=== PATIENT | male | born 1950 | race Caucasian/White ===

== ENCOUNTER 2019-07-19 10:46 | Inpatient (IN) | payer OTHER, MEDICARE ==
[~2019-07-19] VITALS: Ht 182.9 cm; Wt 146.7 kg
[2019-07-19 11:38] LABS: MEAN CORPUSCULAR HEMOGLOBIN 29.5 pg (27.5-34.5); MEAN CORPUSCULAR VOLUME 89.3 fL (81-97); MEAN PLATELET VOLUME 7.4 fL (7.4-10.4); PLATELET COUNT 193 x10^3/uL (130-400); RED BLOOD COUNT 5.58 x10^6/uL (4.38-5.82); RED CELL DISTRIBUTION WIDTH 14.9 % (9.4-14.8)
[2019-07-19 11:45] LABS: ALBUMIN 3.7 g/dL (3.4-5.0); ANION GAP 5 mmol/L (5-15); CALCIUM 8.9 mg/dL (8.5-10.1); CHLORIDE 109 mmol/L (98-107)
[2019-07-19 11:47] LABS: CREATININE 1.59 mg/dL (0.7-1.3)
[2019-07-19 12:12] LABS: MD YES
[2019-07-19 12:19] LABS: BAND#(MANUAL) 0.41 x10^3/uL; BANDS%(MANUAL) 2 % (0-7); LYMPH#(MANUAL) 1.44 x10^3/uL (1-3.4); LYMPHS% (MANUAL) 7 % (22-44); MONOS#(MANUAL) 0.62 x10^3/uL (0.3-2.7); MONOS% (MANUAL) 3 % (2-9); SEG#(MANUAL) 18.04 x10^3/uL (1.8-6.8); SEGS% (MANUAL) 88 % (42-75)
[2019-07-19 12:21] LABS: <RBC MORPHOLOGY> NORMAL
[2019-07-19 12:22] LABS: <PLATELET ESTIMATE> ADEQUATE; <PLT MORPHOLOGY> NORMAL PLT MORPH
--- NOTE | 2019-07-19 12:42 | NUR ---
Vick laura in ED - 07/19/19 at 1244 by ARIANE BREAK [employer] REPAIRER: PT FROM LOBBY TO ROOM AT THIS TIME.
--- NOTE | 2019-07-19 12:44 | NUR ---
BREAK RN: CALLED FOR PT. PT NOT IN LOBBY.
--- NOTE | 2019-07-19 14:54 | NUR ---
ASSUMED CARE OF PT AT THIS TIME. THIS IS A 68 YO MALE WHO PRESENTS TO THE ER C/O GENERALIZED WEAKNESS AND "FEELING REALLY COLD YESTERDAY" AND PER PT IS "DISORIENTED". PT ANSWERING ALL QUESTIONS APPROPRIATELY AT THIS TIME. PT MOVES ALL EXTREMITIES W/O DIFFICULTY. PT AO X 4. SKIN PWD. RESP EVEN AND UNLABORED. 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 CALL LIGHT WITHIN REACH. WILL CONT TO MONITOR PT. Addendum: 07/19/19 at 1459 by ARIANE ASSUMED CARE OF PT AT THIS TIME. THIS IS A 68 YO MALE WHO PRESENTS TO THE ER C/O GENERALIZED WEAKNESS AND "FEELING REALLY COLD YESTERDAY" AND PER PT IS "DISORIENTED". PT ANSWERING ALL QUESTIONS APPROPRIATELY AT THIS TIME. PT MOVES ALL EXTREMITIES W/O DIFFICULTY. PER AND PT HE WAS TOO WEAK TO STAND AND GET OFF BED THIS MORNING. STATES SHE HAD TO CALL AN AMBULANCE BECAUSE SHE COULDN'T GET HIM TO THE CAR. PT STATES HE CAN STAND TO USE THE BATHROOM "WITH GREAT DIFFICULTY". PT AO X 4. SKIN PWD. RESP EVEN AND UNLABORED. 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 CALL LIGHT WITHIN REACH. WILL CONT TO MONITOR PT.
--- NOTE | 2019-07-19 15:30 | NUR ---
BLADDER SCANNED PT AFTER PT USED URINAL. 147 ML NOTED IN BLADDER. ERNA CLARK AND LEASING DIRECTOR STUDENT MILO MADE AWARE. PT AO X 4. SKIN PWD. RESP EVEN AND UNLABORED. PT ON CONT CP, CARDIAC AND O2 MONITORS.
[2019-07-19] MEDS ORDERED: CEFTRIAXONE PMX 1GM/50ML 50 ML ONE (15:56)
[2019-07-19] MEDS ORDERED: CEFTRIAXONE PMX 1GM/50ML 50 ML IVPB ONE (16:00)
[2019-07-19] MEDS ORDERED: SODIUM CHLORIDE 0.9% 1,000ML IVBOLUS ONE (16:00)
[2019-07-19] MEDS ORDERED: SODIUM CHLORIDE FLUSH 10ML SYR IVF ONE (16:30)
--- NOTE | 2019-07-19 16:40 | NUR ---
BREAK RN: X1 ASSIST WITH AMBULATING PATIETN TO RESTROOM CONNECTED TO ROOM. REPORT GIVEN BACK TO PRIMARY RN, VIOLET.
[2019-07-19 16:41] LABS: CULTURE INDICATED? YES; MICROSCOPIC INDICATED
--- NOTE | 2019-07-19 17:30 | NUR ---
PT TO IMAGING VIA [employer] AT THIS TIME.
[2019-07-19] MEDS ORDERED: ONDANSETRON 2MG/ML, 2ML IVPush PRN (18:00)
[2019-07-19] MEDS ORDERED: ACETAMINOPHEN 325 MG TABLET PO PRN (18:00)
[2019-07-19] MEDS ORDERED: ONDANSETRON ODT 4 MG PO PRN (18:00)
[2019-07-19] MEDS ORDERED: TAMSULOSIN 0.4 MG CAP.ER.24H PO ONE (18:00)
[2019-07-19] MEDS ORDERED: TAMS-11 PO (18:04)
--- NOTE | 2019-07-19 18:06 | NUR ---
REPORT TO DEISI BEDOYA. PT STILL IN IMAGING AT THIS TIME.
[2019-07-19] MEDS: CEFTRIAXONE PMX 1GM/50ML 50 ML IV SCH (18:19)
[2019-07-19] MEDS: SODIUM CHLORIDE 0.9% 1,000 ML IV SCH (18:36)
[2019-07-19] MEDS: ENOXAPARIN 40 MG/0.4 ML SQ SCH (18:37)
[2019-07-19 19:55] VITALS: BP 134/81
[2019-07-20] MEDS: SODIUM CHLORIDE 0.9% 1,000 ML IV SCH ×3 (02:19→17:41)
[2019-07-20 02:20] VITALS: BP 133/76
[2019-07-20 03:19] LABS: CLOSTRIDIUM DIFFICILE ANTIGEN NEGATIVE; CLOSTRIDIUM DIFFICILE TOXIN NEGATIVE (Negative)
[2019-07-20 05:30] LABS: MEAN CORPUSCULAR HEMOGLOBIN 29.4 pg (27.5-34.5); MEAN CORPUSCULAR HGB CONC 32.4 g/dL (33.2-36.2); MEAN CORPUSCULAR VOLUME 90.6 fL (81-97); MEAN PLATELET VOLUME 6.9 fL (7.4-10.4); PLATELET COUNT 147 x10^3/uL (130-400); RED BLOOD COUNT 5.17 x10^6/uL (4.38-5.82); RED CELL DISTRIBUTION WIDTH 14.8 % (9.4-14.8)
[2019-07-20 05:39] LABS: ALANINE AMINOTRANSFERASE 40 U/L (12-78); ALBUMIN 3.2 g/dL (3.4-5.0); ANION GAP 7 mmol/L (5-15); CALCIUM 8.5 mg/dL (8.5-10.1); CHLORIDE 110 mmol/L (98-107); CREATININE 1.79 mg/dL (0.7-1.3)
[2019-07-20 05:41] LABS: ALKALINE PHOSPHATASE 51 U/L (45-117); BILIRUBIN,TOTAL 1.5 mg/dL (0.2-1.0); TOTAL PROTEIN 7.2 g/dL (6.4-8.2)
[2019-07-20 05:58] LABS: BASOPHILS % (AUTO) 1 % (0-1); EOSINOPHILS # (AUTO) 0.02 x10^3/uL (0-0.4); EOSINOPHILS % (AUTO) 0 % (1-7); LYMPHOCYTES # (AUTO) 1.76 x10^3/uL (1-3.4); LYMPHOCYTES % (AUTO) 10 % (22-44); MD SCAN; MONOCYTES # (AUTO) 1.34 x10^3/uL (0.2-0.8); MONOCYTES % (AUTO) 8 % (2-9); NEUTROPHILS % (AUTO) 81 % (42-75)
[2019-07-20 08:00] VITALS: BP 134/75
[2019-07-20 15:19] VITALS: BP 136/85
[2019-07-20] MEDS: CEFTRIAXONE PMX 1GM/50ML 50 ML IV SCH (17:41)
[2019-07-20] MEDS: ENOXAPARIN 40 MG/0.4 ML SQ SCH (17:41)
[2019-07-20] MEDS ORDERED: FENTANYL PF 100 MCG/2ML ONE (18:57)
[2019-07-20] MEDS ORDERED: PROMETHAZINE 25 MG/ML, 1ML IV PRN (19:30)
[2019-07-20] MEDS ORDERED: LABETALOL 5MG/ML, 20ML IV PRN (19:30)
[2019-07-20] MEDS ORDERED: MEPERIDINE/PF 25MG/0.5ML IVPush PRN (19:30)
[2019-07-20] MEDS ORDERED: FENTANYL PF 100 MCG/2ML IV PRN (19:30)
[2019-07-20] MEDS ORDERED: hydrALAzine 20 MG/ML, 1ML IV PRN (19:30)
[2019-07-20] MEDS ORDERED: KETOROLAC 30 MG/1 ML IV PRN (19:30)
[2019-07-20] MEDS ORDERED: OXYcodone 5 MG/5 ML ORAL.SOL UDC PO PRN (19:30)
[2019-07-20] MEDS ORDERED: ALBUTEROL SULFATE 2.5 MG/3 ML NPPB PRN (19:30)
[2019-07-20] MEDS ORDERED: HYDROmorphone 2 MG/ML, 1ML IVPush PRN (19:30)
[2019-07-20] MEDS ORDERED: ACETAMINOPHEN 325 MG TABLET PO PRN (19:30)
[2019-07-20] MEDS ORDERED: DIAZEPAM 5 MG/ML, 2ML IVPush PRN (19:30)
[2019-07-20] MEDS ORDERED: DEXAMETHASONE 4 MG/ML, 1ML ONE (19:37)
[2019-07-20] MEDS ORDERED: ROCURONIUM 10MG/ML,5ML ONE (19:37)
[2019-07-20] MEDS ORDERED: PROPOFOL 10 MG/ML, 20ML ONE (19:37)
[2019-07-20] MEDS ORDERED: NEOSTIGMINE 1 MG/ML, 10ML ONE (19:37)
[2019-07-20] MEDS ORDERED: ONDANSETRON 2MG/ML, 2ML ONE (19:37)
[2019-07-20] MEDS ORDERED: SUCCINYLCHOLINE 20 MG/ML, 10ML ONE (19:37)
[2019-07-20] MEDS ORDERED: GLYCOPYRROLATE 0.2MG/1ML, 5ML ONE (19:37)
[2019-07-20] MEDS ORDERED: CEFAZOLIN 1,000 MG ONE (19:37)
[2019-07-21 00:19] VITALS: BP 128/66
[2019-07-21 04:51] VITALS: BP 113/70
[2019-07-21] MEDS: SODIUM CHLORIDE 0.9% 1,000 ML IV SCH ×3 (05:15→20:05)
[2019-07-21 05:31] LABS: CHLORIDE 113 mmol/L (98-107)
[2019-07-21 05:38] LABS: ANION GAP 5 mmol/L (5-15); CALCIUM 8.4 mg/dL (8.5-10.1); CREATININE 1.24 mg/dL (0.7-1.3)
[2019-07-21 05:41] LABS: BASOPHILS # (AUTO) 0.01 x10^3/uL (0-0.1); BASOPHILS % (AUTO) 0 % (0-1); EOSINOPHILS # (AUTO) 0.02 x10^3/uL (0-0.4); EOSINOPHILS % (AUTO) 0 % (1-7); LYMPHOCYTES # (AUTO) 0.56 x10^3/uL (1-3.4); LYMPHOCYTES % (AUTO) 6 % (22-44); MD NO; MEAN CORPUSCULAR HEMOGLOBIN 29.7 pg (27.5-34.5); MEAN CORPUSCULAR HGB CONC 32.9 g/dL (33.2-36.2); MEAN CORPUSCULAR VOLUME 90.4 fL (81-97); MEAN PLATELET VOLUME 7.4 fL (7.4-10.4); MONOCYTES # (AUTO) 0.64 x10^3/uL (0.2-0.8); MONOCYTES % (AUTO) 7 % (2-9); NEUTROPHILS # (AUTO) 7.88 x10^3/uL (1.8-6.8); NEUTROPHILS % (AUTO) 87 % (42-75); PLATELET COUNT 143 x10^3/uL (130-400); RED BLOOD COUNT 4.71 x10^6/uL (4.38-5.82); RED CELL DISTRIBUTION WIDTH 14.6 % (9.4-14.8)
[2019-07-21 08:00] VITALS: BP 129/74
[2019-07-21] MEDS: CEFTRIAXONE PMX 2GM/50ML 50 ML IV SCH (08:42)
[2019-07-21] MEDS: LACTOBACILLUS CHEW TABLET PO SCH ×3 (11:05→20:01)
[2019-07-21 13:42] VITALS: BP 134/85
[2019-07-21] MEDS: ENOXAPARIN 40 MG/0.4 ML SQ SCH (17:09)
[2019-07-21 18:42] VITALS: BP 129/81
[2019-07-22 01:28] VITALS: BP 138/91
[2019-07-22] MEDS: SODIUM CHLORIDE 0.9% 1,000 ML IV SCH ×3 (03:25→20:32)
[2019-07-22 05:06] LABS: BASOPHILS % (AUTO) 0 % (0-1); EOSINOPHILS # (AUTO) 0.04 x10^3/uL (0-0.4); EOSINOPHILS % (AUTO) 0 % (1-7); LYMPHOCYTES # (AUTO) 1.09 x10^3/uL (1-3.4); LYMPHOCYTES % (AUTO) 13 % (22-44); MD NO; MEAN CORPUSCULAR HEMOGLOBIN 29.6 pg (27.5-34.5); MEAN CORPUSCULAR HGB CONC 32.7 g/dL (33.2-36.2); MEAN CORPUSCULAR VOLUME 90.6 fL (81-97); MEAN PLATELET VOLUME 7.7 fL (7.4-10.4); MONOCYTES # (AUTO) 0.82 x10^3/uL (0.2-0.8); MONOCYTES % (AUTO) 10 % (2-9); NEUTROPHILS # (AUTO) 6.31 x10^3/uL (1.8-6.8); NEUTROPHILS % (AUTO) 76 % (42-75); PLATELET COUNT 158 x10^3/uL (130-400); RED BLOOD COUNT 4.55 x10^6/uL (4.38-5.82); RED CELL DISTRIBUTION WIDTH 14.7 % (9.4-14.8)
[2019-07-22 05:22] LABS: CALCIUM 7.9 mg/dL (8.5-10.1); CHLORIDE 113 mmol/L (98-107)
[2019-07-22 05:26] LABS: ANION GAP 4 mmol/L (5-15); CREATININE 1.24 mg/dL (0.7-1.3)
[2019-07-22 06:55] VITALS: BP 140/85
[2019-07-22] MEDS: CEFTRIAXONE PMX 2GM/50ML 50 ML IV SCH (08:27)
[2019-07-22] MEDS: LACTOBACILLUS CHEW TABLET PO SCH ×3 (08:27→20:32)
[2019-07-22 16:20] VITALS: BP 154/95
[2019-07-22] MEDS: ENOXAPARIN 40 MG/0.4 ML SQ SCH (17:26)
[2019-07-22 18:31] VITALS: BP 161/80
[2019-07-23 02:19] VITALS: BP 136/78
[2019-07-23] MEDS: SODIUM CHLORIDE 0.9% 1,000 ML IV SCH (04:10)
[2019-07-23 08:29] VITALS: BP 138/82
[2019-07-23] MEDS: LACTOBACILLUS CHEW TABLET PO SCH ×3 (08:55→21:41)
[2019-07-23] MEDS: CEFTRIAXONE PMX 2GM/50ML 50 ML IV SCH (08:55)
[2019-07-23 13:30] VITALS: BP 191/97
[2019-07-23 13:44] VITALS: BP 155/78
[2019-07-23] MEDS: ENOXAPARIN 40 MG/0.4 ML SQ SCH (17:34)
[2019-07-23 18:18] VITALS: BP 160/89
[2019-07-24 02:08] VITALS: BP 158/103
[2019-07-24] MEDS: DIPHENHYDRAMINE 25 MG CAPSULE PO PRN ×2 (02:37→10:27)
[2019-07-24 02:40] VITALS: BP 147/79
[2019-07-24 06:59] VITALS: BP 0/0
[2019-07-24] MEDS: CEFTRIAXONE PMX 2GM/50ML 50 ML IV SCH (07:45)
[2019-07-24] MEDS: LACTOBACILLUS CHEW TABLET PO SCH (07:45)
[2019-07-24 07:56] VITALS: BP 149/79
[2019-07-24] MEDS ORDERED: CEFD300C37 PO (11:34)
[2019-07-24 13:46] VITALS: BP 141/87
== END 2019-07-24 14:00 | disposition home or self-care (01) | DRG 853 ==
LOC: ED 16:13 → EDIP 17:38 → 3N 18:16 → 4NE 07-20 20:40
PROVIDERS: ADMIT Hospitalist; ATTEND Hospitalist
PROC: 0T778DZ Dilation of Left Ureter with Intraluminal Device, Via Natural or Artificial Opening Endoscopic (ICD-10-PCS; principal; 2019-07-20 19:00)
DX: A41.51 Sepsis due to Escherichia coli [E. coli] (principal); N17.0 Acute kidney failure with tubular necrosis; N13.6 Pyonephrosis; G47.33 Obstructive sleep apnea (adult) (pediatric); N28.1 Cyst of kidney, acquired; N40.0 Benign prostatic hyperplasia without lower urinary tract symptoms; Z90.49 Acquired absence of other specified parts of digestive tract
CPT/HCPCS: 36415; 70450; 71045; 74176; 76770; 80048; 80053; 81001; 82040; 83605; 83735; 84100; 84145; 85025; 87040; 87077; 87086; 87186; 87324; 93005; 96365; 99285; G0378; J0690; J0696; J1100; J1650; J2405; J2704; J2710; J3010; C1769; C2617; J0330; J7030; Q0163

== ENCOUNTER 2020-07-06 10:01 | Emergency (ER) | payer MEDICARE, OTHER ==
[~2020-07-06] VITALS: Ht 185.4 cm; Wt 133.2 kg
[~2020-07-06 10:01] MED LIST: CEFD300C37 PO; TAMS-11 PO
[2020-07-06] MEDS ORDERED: KETOROLAC 30 MG/1 ML ONE (10:18)
--- NOTE | 2020-07-06 10:28 | NUR ---
pt to xr
[2020-07-06] MEDS ORDERED: KETOROLAC 30 MG/1 ML IM ONE (10:30)
--- NOTE | 2020-07-06 10:40 | NUR ---
returns from xr
[2020-07-06 11:04] VITALS: BP 133/70
== END 2020-07-06 11:27 | disposition home or self-care (01) ==
LOC: ED 10:24
DX: S43.401A Unspecified sprain of right shoulder joint, initial encounter (principal); W00.0XXA Fall on same level due to ice and snow, initial encounter; Y93.89 Activity, other specified; Y92.89 Other specified places as the place of occurrence of the external cause; Y99.0 Civilian activity done for income or pay
CPT/HCPCS: 73030; 96372; 99283; J1885

== ENCOUNTER 2020-07-09 08:33 | Emergency (ER) | payer OTHER ==
[~2020-07-09] VITALS: Ht 185.4 cm; Wt 134.1 kg
[2020-07-09 08:36] VITALS: BP 164/96
--- NOTE | 2020-07-09 08:59 | NUR ---
PATIENT ADVISED WE CANNOT GIVE HIM A WORK COMP RELEASE BACK TO WORK. HE NEEDS TO CONTACT HIS WORK COMP PROVIDER TO FIND THE CONTRACTED FACILITY. HE WAS NOT SEEN BY THE PROVIDER AND WAS D/C.
== END 2020-07-09 09:02 | disposition left against medical advice (07) ==
LOC: ED 08:49
DX: M25.511 Pain in right shoulder (principal)
CPT/HCPCS: 99281